=== PATIENT | male | born 2000 | race Caucasian/White ===

== ENCOUNTER 2021-04-07 13:15 | Emergency (ER) | payer MEDICAID ==
[~2021-04-07] VITALS: Ht 167.6 cm; Wt 72.6 kg
--- NOTE | 2021-04-07 13:25 | NUR ---
Note lottie in ED - 04/07/21 at 1333 by MAURICE Patient to ER bed 1 to clarissa for evaluation. Side rails up. Report given to Erika DODSON
[2021-04-07 13:43] VITALS: BP_SYST 141
--- NOTE | 2021-04-07 13:45 | NUR ---
Patient to ER bed 6 to gown for evaluation. Side rails up. Report given to ANA DODSON.
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
--- NOTE | 2021-04-07 14:15 | NUR ---
ER at bedside examining patient.
[2021-04-07] MEDS ORDERED: IBUPROFEN 800 MG TABLET PO ONE (14:30)
[2021-04-07] MEDS ORDERED: DIPH-TET-PERTUS Vaccine 0.5 ML VIAL (ADACEL) I.M. ONE (14:30)
[2021-04-07] MEDS ORDERED: LIDOCAINE/EPI 1% 1:100000 20 ML VIAL INJ ONE (14:30)
[2021-04-07] MEDS ORDERED: ACETAMINOPHEN 500 MG TABLET PO ONE (14:30)
[2021-04-07] MEDS ORDERED: BACITRACIN 1 GM OINT TP ONE (16:00)
--- NOTE | 2021-04-07 16:11 | NUR ---
Treated with Basitrasin, stretch gauze bandage, & tubular gauze.
--- NOTE | 2021-04-07 16:27 | NUR ---
Patient given written and verbal discharge instructions and verbalizes understanding. ER Dr. Frey discussed with patient the results and treatment provided. Patient in stable condition. ID arm band removed. Patient educated on pain management and to follow up with PMD. Pain Scale 0. Opportunity for questions provided and answered.
[2021-04-07 16:28] VITALS: BP_SYST 132
== END 2021-04-07 16:28 | disposition home or self-care (01) ==
LOC: SED 13:15
DX: S61.211A Laceration without foreign body of left index finger without damage to nail, initial encounter (principal); W45.8XXA Other foreign body or object entering through skin, initial encounter; Y93.89 Activity, other specified; Y92.89 Other specified places as the place of occurrence of the external cause; Y99.8 Other external cause status
CPT/HCPCS: 73140-TC; 90715; 99283